=== PATIENT | female | born 1985 | race Caucasian/White ===

== ENCOUNTER 2016-05-23 17:27 | Inpatient (IN) | payer OTHER ==
[~2016-05-23] VITALS: Ht 162.6 cm; Wt 93.0 kg
[2016-05-23] MEDS: LACTATED RINGER'S 1,000 ML IV SCH (01:20)
[~2016-05-23 17:27] MED LIST: IBUP-1542 PO
[2016-05-23 17:47] VITALS: Ht 162.6 cm; Wt 93.0 kg
[2016-05-23 17:48] VITALS: BP 172/96; RESP 19
--- NOTE | 2016-05-23 17:59 | TRIAGE ---
OB Triage Datetime Report Generated by CPN: 05/23/2016 17:59 Datetime: 05/23/2016 17:39 EGA: 35.2 Datetime: 05/23/2016 17:38 Heart Rate Comments: PT CAME IN C/O BACK AND ABD PAIN SINCE YESTERDAY AFTERNOON. PLACED ON EFM X [address] ATES THAT SHE IS GDM AND HAVE HIGH BLOOD PRESSURE NOT TAKIN MEDCIATIONS AT THIS TIME Datetime: 05/23/2016 17:35 Assessment Type: Triage Maternal Assessment Level of Consciousness: Fully Conscious DTR's/Clonus: DTRs 2+; No Clonus Headache: Denies Blurred Vision: No Respiratory Effort: Unlabored; Regular Rhythm; Equal Expansion Breath Sounds, Left: Clear and Equal Breath Sounds, Right: Clear and Equal Nausea/Vomiting: Denies RUQ Epigastric Pain: Denies Lower Extremities Edema: None Degree: None Upper Extremities Edema: None Degree: None Facial Edema: None Fall Risk Assessment History of Falling: (0) No Secondary Diagnosis: (0) No Ambulatory Aid: (0) Bedrest/Nurse Assist IV Therapy: (0) No Gait: (0) Normal/Bedrest/Immobile Mental Status: (0) Oriented to Own Ability Fall Score: 0 Fall Risk Score Definition: No Risk: No action required Datetime: 05/23/2016 17:22 Stage of : OB Triage Time of Arrival: 05/23/2016 17:22 Arrived By: Wheelchair Arrived From: Home Chief Complaint: PT CAME IN C/O ABD PAIN AND BACK PAIN SINCE YESTERDAY Movement: Present Contractions: Denies/Absent Rupture of Membranes: Denies Vaginal Discharge: Denies Recent Sexual Intercouse: Denies Abdominal Trauma: Not Applicable Additional Patient Complaints: NONE Time Provider Notified: 05/23/2016 17:55 Provider Notified: CARINA Initial Plan: MONITOR AND VE
[2016-05-23] MEDS ORDERED: LACTATED RINGER'S 1,000 ML IV PRN (18:22)
[2016-05-23] MEDS ORDERED: LACTATED RINGER'S 1,000 ML IV SCH (18:22)
[2016-05-23] MEDS ORDERED: OXYTOCIN 30 UNITS/LR 500 ML IV SCH ×3 (18:30→22:30)
[2016-05-23] MEDS ORDERED: LIDOCAINE 1% (MPF) 30 ML INJ INJ PRN (18:30)
[2016-05-23] MEDS ORDERED: BUTORPHANOL 2 MG INJ IV PRN (18:30)
[2016-05-23] MEDS ORDERED: CARBOPROST 250 MCG INJ IM PRN (18:30)
[2016-05-23] MEDS ORDERED: METHYLERGONOVINE 0.2 MG INJ IM PRN (18:30)
[2016-05-23] MEDS ORDERED: AMPICILLIN 2 GM/NS (PMX) 100 ML IV ONE (18:30)
[2016-05-23] MEDS ORDERED: OXYTOCIN 30 UNITS/LR 500 ML IV PRN (18:30)
[2016-05-23] MEDS ORDERED: IBUPROFEN 600 MG TAB PO PRN (18:30)
[2016-05-23] MEDS ORDERED: MISOPROSTOL 200 MCG TAB PR PRN (18:30)
[2016-05-23 18:39] LABS: ADD SCAN DIFF NO
[2016-05-23 18:42] LABS: ABNORMAL IP MESSAGE 1; HEMOGLOBIN 11.8 g/dl (12.0-16.0)
[2016-05-23 18:54] LABS: INR 0.93; PROTIME 12.5 Sec (12.2-14.2)
[2016-05-23 18:56] LABS: HEMATOCRIT 34.8 % (37.0-47.0); MEAN CORPUSCULAR HEMOGLOBIN 28.6 pg (29.0-33.0); MEAN CORPUSCULAR HGB CONC 33.9 g/dl (32.0-37.0); MEAN CORPUSCULAR VOLUME 84.3 fl (82.0-101.0); PLATELET COUNT 142 10^3/UL (140-415); RED BLOOD COUNT 4.13 10^6/ul (4.20-5.40); RED CELL DISTRIBUTION WIDTH 13.8 % (11.5-14.5); WHITE BLOOD COUNT 6.7 10^3/ul (4.8-10.8)
[2016-05-23] MEDS ORDERED: MAGNESIUM SULFATE 4 GM/100 ML 100 ML IV ONE (19:00)
[2016-05-23 19:29] LABS: MONOCYTE # 0.2 10^3/ul (0.3-0.9); NEUTROPHIL # 3.1 10^3/ul (1.6-7.5)
[2016-05-23] MEDS ORDERED: BETAMET NA PHOS/AC(6 MG/ML) 5ML INJ IM SCH (19:30)
[2016-05-23] MEDS: MAGNESIUM SULFATE 20 GM/500 ML 500 ML IV SCH (19:35)
--- NOTE | 2016-05-23 19:35 | RADRPT ---
PROCEDURE: US OB. CLINICAL INDICATION: Labor. TECHNIQUE: Multiple sonographic images of the pelvis were obtained. The images were reviewed on a PACS workstation. COMPARISON: No prior studies are available for comparison. FINDINGS: There is a single viable intrauterine gestation. Cardiac activity is present with 156 beats per min grindstone. There is a cephalic presentation. Measurements were made in order to determine age. The results are as follows: BPD =8.69 cm HC =31.87 cm AC =36.24 cm FL =7.01 cm. Estimated gestational age of approximately 36 weeks and 6 days. The estimated date of delivery is 06/14/2016. The EFW = 3398 g . The heart, intracranial contents, spine, stomach, kidneys, bladder and cord insertion are visualized and without abnormality. The placenta is posterior, grade 2.. There is no evidence for an abruption or placenta previa. There is a normal amount of amniotic fluid with an SALLY = 24.9 cm. There are no adnexal masses.. IMPRESSION: Single live intrauterine gestation of approximately 36 weeks and 6 days. The estimated date of deli very is 06/14/2016. RPTAT: UU Physician Chepe Date Time Electronically viewed and signed by Physician Chepe on 05/23/2016 19:35 RS/
[2016-05-23 19:37] LABS: ALBUMIN 3.2 g/dl (3.3-4.9)
[2016-05-23 19:38] LABS: POTASSIUM 3.9 mmol/L (3.5-5.1)
[2016-05-23 19:39] LABS: CREATININE 0.62 mg/dl (0.44-1.00)
[2016-05-23 19:40] LABS: ALBUMIN/GLOBULIN RATIO 0.96; BILIRUBIN,INDIRECT 0.1 mg/dl (0-1.1); BILIRUBIN,TOTAL 0.1 mg/dl (0.2-1.3); TOTAL PROTEIN 6.5 g/dl (6.1-8.1)
[2016-05-23] MEDS ORDERED: hydrALAzine 20 MG INJ IV ONE ×4 (20:00→22:00)
[2016-05-23 20:24] LABS: URINE BILIRUBIN (Dip) NEGATIVE (NEGATIVE); URINE BLOOD (Dip) NEGATIVE (NEGATIVE); URINE COLOR LT. YELLOW (YELLOW); URINE GLUCOSE (Dip) >=1000 % (NEGATIVE); URINE KETONES (Dip) 40 (NEGATIVE); URINE LEUKOCYTE ESTERASE (Dip) NEGATIVE (NEGATIVE); URINE NITRITE (Dip) NEGATIVE (NEGATIVE); URINE UROBILINOGEN (Dip) 0.2 E.U./dL (0.1-1.0)
[2016-05-23 20:25] LABS: ADD UMIC NO; URINE TOTAL PROTEIN (Dip) NEGATIVE (NEGATIVE)
[2016-05-23 20:36] LABS: BARBITURATES Negative (NEGATIVE); BENZODIAZEPINES Negative (NEGATIVE)
[2016-05-23 20:37] LABS: CANNABINOIDS Negative (NEGATIVE); COCAINE Negative (NEGATIVE)
[2016-05-23 20:38] LABS: OPIATES Negative (NEGATIVE)
[2016-05-23] MEDS ORDERED: ACCU-CHEK XX SCH (21:00)
[2016-05-23] MEDS ORDERED: AMPICILLIN 1 GM/NS (PMX) 50 ML IV SCH (22:00)
[2016-05-23] MEDS ORDERED: CEFAZOLIN 2 GM/50 ML (PMX) 50 ML IV SCH (22:30)
[2016-05-23] MEDS ORDERED: morphine SULFATE/PF (10 MG/10 ML) INJ ONE (22:31)
[2016-05-23] MEDS ORDERED: FENTAnyl 50 MCG/ML VIAL ONE (22:32)
--- NOTE | 2016-05-23 22:45 | QN ---
Documentation Comment Laborist Asked by Dr. Miller to proceed with C/S in 35wk pt with severe-range BPs unresponsive to IV antihypertensives, at the recommendation of Dr. Mcdaniel. In to meet pt and review FHT. Category 1 FHT. The risks of C/S discussed with pt and partner which include but are not limited to pain, infection, damage to nearby organs, structures or injury to baby, bleeding possibly requiring transfusion of blood products, abnormal placentation in future pregnancies and possible need for deliveries for future pregnancies. Pt made aware that should injury to organs or structures be noted during the procedure, they will be repaired. However, there is a possibility that injuries may be sustained at the time of the C/S and go unrecognized. Thus additional surgeries may be necessary to repair damage during the C/S. The pt had an opportunity to have her questions answered. Written consent for Repeat C/S and transfusion of blood products were signed. RN and Anesthesia teams made aware of plan. Will proceed to OR now. Of note, pt desires tubal sterilization which per pt will be done with Dr. Miller after 6wks. Pt had not previously signed tubal papers. MAGALYS ARCE MD May 23, 2016 22:45
[2016-05-23] MEDS ORDERED: PHENYLephrine (100 MCG/ML) 5ML SYG ONE (22:54)
[2016-05-23] MEDS ORDERED: ONDANSETRON 4 MG INJ IV PRN (23:00)
[2016-05-23] MEDS ORDERED: DIPHENHYDRAMINE 50 MG INJ IV PRN (23:00)
[2016-05-23] MEDS ORDERED: ZOLPIDEM 5 MG TAB PO PRN (23:00)
[2016-05-23] MEDS ORDERED: HYDROmorphONE 1 MG/ML SYG IV PRN ×2 (23:00)
[2016-05-23] MEDS ORDERED: NALOXONE (0.4 MG/ML) INJ IV PRN (23:00)
[2016-05-23] MEDS ORDERED: CITRIC ACID/NA CITRATE 30 ML CUP PO ONE (23:00)
[2016-05-23] MEDS ORDERED: DEXAMETHASONE 4 MG/ML 1 ML INJ ONE (23:25)
--- NOTE | 2016-05-23 23:52 | OPR ---
Operative Report Planned Procedure Procedure date May 23, 2016 Procedure(s) Primary Low Transverse Section Performed by: MAGALYS ARCE MD Assisting provider: GREG GABRIEL M.D. Anesthesiologist: DESTINY BRAN Pre-procedure diagnosis 1) 35+2wks GA 2) Gestational Hypertension with Severe Range BPs unresponsive to IV antihypertensives 3) GDMA1 Anesthesia Type: spinal Procedure Description Under satisfactory anesthesia, the patient was prepped and draped in the normal sterile fashion and placed in a supine position, tilted to the left. A Pfannenstiel incision was made with a scalpel and the incision was carried down through the underlying subcutaneous tissue sharply. Bleeders were controlled with electrocautery. The fascia was incised on both sides of the midline and extended laterally in a blunt fashion with blunt dissection off of the underlying rectus muscles. The rectus muscles were divided midline. The peritoneum was then exposed and entered bluntly. Exploration of abdomen revealed a gravid uterus and good visualization of the bladder. An Kishor retractor was inserted into the intraabdominal cavity with care to avoid trapping tissue, bowel or omentum. A transverse incision was made in the lower segment of the uterus using a scalpel. The uterus was entered bluntly and the incision was bluntly extended in a cephalad caudad fashion. The head was brought to the level of the hysterotomy and delivered with fundal pressure. A tight nuchal cord was reduced. The shoulders then delivered followed by the remainder of the body. Nasal oropharyngeal suction was performed. The cord was milked, doubly clamped and cut and the baby was taken to the baby warmer for immediate assessment by RT. Cord blood was obtained. The placenta was delivered manually intact. The uterine cavity was cleaned with two wet sponges. The uterus was closed in a single layer using 0-Vicryl in continuous running- locking fashion with a second 0-Vicryl used for several [id number] sutures to ensure hemostasis. The peritoneal cavity was irrigated with warm saline and hemostasis was noted. The retractor was removed and uterus was returned to the abdomen. Sponge, needle and instrument count reported to be correct. The hysterotomy was again examined and noted to be hemostatic. Surgicel was placed across the hysterotomy. The rectus muscles and fascia were examined and noted to be intact and hemostatic. The fascia was closed with 0-Vicryl in a continuous fashion. Sponge, needle and instrument count reported to be correct. The subcutaneous layer was irrigated and small bleeders rendered hemostatic with electrocautery. Reapproximation of the subcutaneous layer was achieved with 2-0 Plain gut suture. The skin was closed with 3-0 Monocryl on a Loc needle. Steristrips and a dressing were applied. Estimated blood loss 500mL. Urine bag contained 150mL of clear urine. IVF 1L administered. Pt received IV Ancef prior to skin incision. Post-Procedure Post-procedure diagnosis Same, delivered Findings: Live female infant, Apgars 8 and 9, weight 3735g, cephalic presentation, three vessel cord. Large amount of clear amniotic fluid. Specimen removed: Yes Specimen description Placenta sent to Pathology Complications: None Pt Condition post procedure: stable Disposition: PACU Physician Certification I, the undersigned physician, hereby certify that I have discussed the procedure described in this consent form with this patient (or the patient's legal key account representative), including: * The risk and benefits of the procedure; * Any adverse reactions that may reasonably be expected to occur; * Any alternative efficacious methods of treatment which may be medically viable ; * The potential problems that may occur during recuperation; * Potential for blood transfusion and associated risks/benefits; and * Any research or economic interest I may have regarding this treatment. I further certify that the patient/legally responsible person was encouraged to ask question and that all questions were answered. MAGALYS ARCE MD May 23, 2016 23:52
[2016-05-24] VITALS (19 sets, daily range): BP systolic 122–158; BP diastolic 78–96; PULSE 81–93; RESP 18–20
[2016-05-24] MEDS ORDERED: METHYLERGONOVINE 0.2 MG INJ IM PRN
[2016-05-24] MEDS ORDERED: OXYTOCIN 30 UNITS/LR 500 ML IV PRN
[2016-05-24] MEDS ORDERED: MISOPROSTOL 200 MCG TAB PR PRN
[2016-05-24] MEDS ORDERED: LANOLIN 7 GM TUBE TOP PRN
[2016-05-24] MEDS ORDERED: ACETAMINOPHEN/CODEINE #3 TAB PO PRN
[2016-05-24] MEDS ORDERED: CARBOPROST 250 MCG INJ IM PRN
[2016-05-24] MEDS: KETOROLAC 30 MG INJ IV PRN ×2 (01:20→17:19)
--- NOTE | 2016-05-24 01:50 | PREOPHP ---
DATE OF ADMISSION: 05/23/2016 HISTORY OF PRESENT ILLNESS: This is a 31-year-old lady, 5, para 3 with 1 . Her EDC is 06/25/2016 at 35 and 2/7 weeks, admitted to rule out labor. She had care in my [place] office and the care was uneventful, except gestational diabetes on diet control. She is g ravida 5, para 3. Her first delivery was 10 years ago, second was 3 years ago, third was 1 year ago . All normal deliveries. GYNECOLOGIC HISTORY: She had menarche at the age of 14, every 28 days interval, 3 to 4 days' durati on, and moderate in amount. FAMILY HISTORY: Mother has diabetes and father has heart disease. REVIEW OF SYSTEMS: CARDIOVASCULAR: No chest pains. RESPIRATORY: No cough. GASTROINTESTINAL: No diarrhea, no vomiting. GENITOURINARY: No dysuria. PHYSICAL EXAMINATION: GENERAL: Reveals a conscious coherent lady and in acute distress. VITAL SIGNS: Her blood pressure on admission was 160/100, pulse rate 80 per minute, respirations 16 per minute. BREASTS, HEART AND LUNGS: Within normal limits. ABDOMEN: Soft, fundic height 37 cm. heart tones 140 per minute. PELVIC: Her pelvic exam revealed the cervix to be 1 cm dilated, 100% effaced, station floating in c ephalic presentation with the bag of water intact. EXTREMITIES: 1+ pedal edema. ADMITTING DIAGNOSIS: A 35 and 2/7 weeks. IMPRESSION: 1. Intrauterine , rule out TB rule out labor. 2. Gestational diabetes, diet controlled. 3. Severe -induced hypertension. . PLAN: Betamethasone and I was given betamethasone last She was given betamethasone, magnesium sulp hate and also Apresoline. She does state that she got a total of 30 mg of Apresoline, but the blood pressure remained to be running between 170 to 180/100. Dr. Mcdaniel was consulted and he advised the patient to go for . Dictated By: PIERRE BAUMAN/ILANA Conf#: [id number] DID#: [id number]
[2016-05-24] MEDS: MAGNESIUM SULFATE 20 GM/500 ML 500 ML IV SCH ×2 (06:44→17:13)
[2016-05-24] MEDS: LACTATED RINGER'S 1,000 ML IV SCH ×3 (07:52→23:52)
[2016-05-24 08:00] LABS: ADD SCAN DIFF NO
[2016-05-24 08:06] LABS: ABNORMAL IP MESSAGE 1; BASOPHILS % 0.1 % (0.0-2.0); HEMATOCRIT 33.2 % (37.0-47.0); LYMPHOCYTES # 1.9 10^3/ul (0.8-2.9); LYMPHOCYTES % 15.3 % (15.0-51.0); MEAN CORPUSCULAR HEMOGLOBIN 28.1 pg (29.0-33.0); MEAN CORPUSCULAR HGB CONC 33.1 g/dl (32.0-37.0); MEAN CORPUSCULAR VOLUME 84.9 fl (82.0-101.0); MONOCYTE # 0.2 10^3/ul (0.3-0.9); MONOCYTES % 1.8 % (0.0-11.0); NEUTROPHIL # 10.4 10^3/ul (1.6-7.5); NEUTROPHILS % 82.4 % (39.0-77.0); PLATELET COUNT 145 10^3/UL (140-415); RED BLOOD COUNT 3.91 10^6/ul (4.20-5.40); WHITE BLOOD COUNT 12.6 10^3/ul (4.8-10.8)
[2016-05-24] MEDS: SENNA/DOCUSATE NA (8.6MG/50MG) TAB PO SCH ×2 (09:00→21:36)
[2016-05-24] MEDS ORDERED: HYDROmorphONE 1 MG/ML SYG IV PRN ×2 (10:00)
[2016-05-24] MEDS ORDERED: DIPHENHYDRAMINE 50 MG INJ IV PRN (10:00)
[2016-05-24] MEDS ORDERED: KETOROLAC 30 MG INJ IV PRN (10:00)
[2016-05-24] MEDS ORDERED: ONDANSETRON 4 MG INJ IV PRN (10:00)
[2016-05-24] MEDS ORDERED: ZOLPIDEM 5 MG TAB PO PRN (10:00)
[2016-05-24] MEDS ORDERED: NALOXONE (0.4 MG/ML) INJ IV PRN (10:00)
[2016-05-25 04:15] VITALS: BP 133/86; PULSE 79
[2016-05-25] MEDS: ACETAMINOPHEN/CODEINE #3 TAB PO PRN ×5 (04:19→23:00)
[2016-05-25] MEDS: LACTATED RINGER'S 1,000 ML IV SCH (07:52)
[2016-05-25 08:00] VITALS: BP 150/92; PULSE 86; RESP 18
[2016-05-25 10:08] LABS: ADD SCAN DIFF NO
[2016-05-25 10:11] LABS: BASOPHILS % 0.2 % (0.0-2.0); EOSINOPHILS % 0.1 % (0.0-7.0); HEMATOCRIT 31.7 % (37.0-47.0); HEMOGLOBIN 10.7 g/dl (12.0-16.0); LYMPHOCYTES # 3.4 10^3/ul (0.8-2.9); LYMPHOCYTES % 30.4 % (15.0-51.0); MEAN CORPUSCULAR HEMOGLOBIN 28.8 pg (29.0-33.0); MEAN CORPUSCULAR HGB CONC 33.8 g/dl (32.0-37.0); MEAN CORPUSCULAR VOLUME 85.4 fl (82.0-101.0); MONOCYTE # 0.4 10^3/ul (0.3-0.9); MONOCYTES % 3.5 % (0.0-11.0); NEUTROPHIL # 7.2 10^3/ul (1.6-7.5); NEUTROPHILS % 65.3 % (39.0-77.0); PLATELET COUNT 157 10^3/UL (140-415); RED BLOOD COUNT 3.71 10^6/ul (4.20-5.40); RED CELL DISTRIBUTION WIDTH 14.3 % (11.5-14.5); WHITE BLOOD COUNT 11.1 10^3/ul (4.8-10.8)
[2016-05-25] MEDS: IBUPROFEN 600 MG TAB PO PRN ×2 (10:19→17:16)
[2016-05-25] MEDS: SENNA/DOCUSATE NA (8.6MG/50MG) TAB PO SCH ×2 (10:19→21:02)
[2016-05-25 16:49] VITALS: BP 153/93; PULSE 81; RESP 17
[2016-05-25 19:20] VITALS: BP_SYST 150; BP_SYST 156; BP_DIAS 85; PULSE 90; RESP 18
[2016-05-26] MEDS: IBUPROFEN 600 MG TAB PO PRN ×3 (00:34→18:44)
[2016-05-26 03:39] VITALS: BP 149/83; PULSE 71; RESP 18
[2016-05-26] MEDS: ACETAMINOPHEN/CODEINE #3 TAB PO PRN ×4 (03:39→20:54)
[2016-05-26 08:30] VITALS: BP 163/96; PULSE 82; RESP 19
[2016-05-26] MEDS: SENNA/DOCUSATE NA (8.6MG/50MG) TAB PO SCH ×2 (08:30→20:54)
[2016-05-26] MEDS: LABETALOL 200 MG TAB PO SCH ×2 (11:32→20:54)
[2016-05-26 15:34] VITALS: BP 135/79; PULSE 90; RESP 18
[2016-05-26 20:54] VITALS: BP 162/86; PULSE 86; RESP 18
[2016-05-27] VITALS (9 sets, daily range): BP systolic 148–177; BP diastolic 82–95; PULSE 63–86; RESP 18–19
[2016-05-27] MEDS: ACETAMINOPHEN/CODEINE #3 TAB PO PRN ×4 (01:43→16:38)
[2016-05-27] MEDS: IBUPROFEN 600 MG TAB PO PRN ×3 (04:10→20:26)
[2016-05-27] MEDS: LABETALOL 200 MG TAB PO SCH ×3 (08:18→20:26)
[2016-05-27] MEDS: SENNA/DOCUSATE NA (8.6MG/50MG) TAB PO SCH ×2 (09:00→20:26)
[2016-05-27] MEDS: NIFEdipine (XL) 30 MG TAB PO SCH ×2 (12:56→21:10)
--- NOTE | 2016-05-27 13:13 | CONS ---
DATE OF ADMISSION: 05/23/2016 DATE OF CONSULTATION: 05/27/2016 REQUESTING MILK HOUSE WORKER: Dr. Jaquelin Miller. REASON FOR CONSULTATION: Hypertension. HISTORY OF PRESENT ILLNESS: This is a 31-year-old G5, P3, 1 with estimated date of 017 at 35 and 2/7 weeks on 05/23/2016 with history of PIH and gestational diabetes during her last , who was admitted on 05/23/2016 to rule out labor. The patient had care in [facility] office and the care was uneventful except patient has diabetes and PIH. The patient was not placed on any blood pressure medication or diabetic medication during her course of . The patient was evaluated by Dr. Estrellita Ortiz upon admission secondary to gestational hypertensi on with severe range of blood pressure, unresponsive to IV antihypertensive medication. Patient was taken to OR for primary low transverse which patient tolerated the procedure well, and sh e gave to a live female 8 and 9, weight 3735 grams, cephalic presentation and pat ient was taken to the NICU secondary to elevated blood glucose. Unfortunately, the has been having variable blood glucose and has remained in the NICU. The medical team has been consulted toda y on 05/27/2016 secondary to MsBarrera Whitney has been having uncontrolled blood pressure today. He r blood pressure has ranged 154/87, 177/95 and 158/86. Yesterday on 05/26/2016, the patient was rosalind nikolai on labetalol 200 mg 1 tab p.o. b.i.d., which has been transitioned to 3 times a day today. At t his time, patient complains of having headache without any nausea or vomiting. She denies any chest pain, shortness of breath, abdominal pain, dysuria, hematuria, urgency, incontinence. No change in motor or sensory. No neck pain, no restricted range of motion in her upper and lower extremities o r neck. PAST MEDICAL AND SURGICAL HISTORY: 1. Gestational diabetes. 2. PIH. MEDICATIONS: 1. Tylenol #3. 2. Simethicone. 3. Senna. 4. Cytotec 5. Motrin. 6. Labetalol. ALLERGIES: NO KNOWN DRUG ALLERGY. FAMILY HISTORY: Noncontributory. SOCIAL HISTORY: Negative x3 for smoking, alcohol, illicit drugs. REVIEW OF SYSTEMS: As above per HPI, otherwise 12 review of systems was found to be negative. PHYSICAL EXAMINATION: VITAL SIGNS: Temperature 98.5, pulse 85, respiration 19, blood pressure 150/36, saturation 95% on r oom air. GENERAL APPEARANCE: The patient is lying in bed comfortably without acute distress. She is awake, alert, oriented. She was answering my questions properly. EYES AND ENT: Conjunctivae and lids are normal. Pupils are normal. Extraocular normal. Hearing g rossly normal. Lips, teeth and gums are normal. Oral mucosa is moist. NECK: Supple. Trachea is midline. No lymphadenopathy. RESPIRATORY: Effort is normal. Clear to auscultation bilaterally. CARDIOVASCULAR: Normal S1, S2. Regular rhythm and rate. No murmur, no bruits, no edema. Peripher al pulses, ____ palpable. Cap refill is normal. CHEST: Normal expansion of thorax during inspiration. ABDOMEN: Soft, nontender, not distended. Bowel sounds present. Surgical site is dry and clean. EXTREMITIES: Upper and lower extremities within normal limits. Full range of motion. No edema. NEUROLOGIC: Cranial nerves II through XII grossly intact. PSYCHIATRIC: She is awake, alert, oriented. LABORATORY WORK: Glucose 158. Magnesium 4.9. WBC on 05/25/2016 11.1, hemoglobin 10.7, hematocrit 31.7, platelets 157. ASSESSMENT AND PLAN: 1. Essential hypertension with history of -induced hypertension, has been started on labet alol at this time. Also, will start the patient on nifedipine and start a low salt diet. 2. Gestational diabetes. Place the patient on low carbohydrate diet. Follow up hemoglobin A1c in a.m. 3. Post-. 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 4. Headache. Continue Tylenol #3 and ibuprofen. 5. For deep venous thrombosis prophylaxis, the patient is ambulatory. 6. At this time, I have started the patient on nifedipine XL and the patient was to continue on lab etalol. If the patient's blood pressure improves and is below 140, she is stable to be discharged from medical standpoint with followup with [facility] as outpatient. Dictated By: ALICE FAN/ILANA Conf#: [id number] DID#: [id number]
[2016-05-28] MEDS: ACETAMINOPHEN/CODEINE #3 TAB PO PRN ×2 (01:33→08:18)
[2016-05-28 04:00] VITALS: BP 139/90; PULSE 85; RESP 18
[2016-05-28] MEDS: IBUPROFEN 600 MG TAB PO PRN ×2 (05:44→13:17)
[2016-05-28 07:11] LABS: ADD SCAN DIFF NO
[2016-05-28 07:19] LABS: BASOPHILS % 0.5 % (0.0-2.0); EOSINOPHILS # 0.4 10^3/ul (0.0-0.5); EOSINOPHILS % 4.2 % (0.0-7.0); HEMATOCRIT 33.8 % (37.0-47.0); HEMOGLOBIN 11.1 g/dl (12.0-16.0); LYMPHOCYTES # 3.2 10^3/ul (0.8-2.9); LYMPHOCYTES % 35.8 % (15.0-51.0); MEAN CORPUSCULAR HEMOGLOBIN 28.5 pg (29.0-33.0); MEAN CORPUSCULAR HGB CONC 32.8 g/dl (32.0-37.0); MEAN CORPUSCULAR VOLUME 86.7 fl (82.0-101.0); MEAN PLATELET VOLUME 13.3 fl (7.4-10.4); MONOCYTE # 0.5 10^3/ul (0.3-0.9); MONOCYTES % 5.5 % (0.0-11.0); NEUTROPHIL # 4.7 10^3/ul (1.6-7.5); NEUTROPHILS % 52.9 % (39.0-77.0); PLATELET COUNT 237 10^3/UL (140-415); WHITE BLOOD COUNT 8.8 10^3/ul (4.8-10.8)
[2016-05-28 07:42] LABS: CALCIUM 8.4 mg/dl (8.4-10.2); CREATININE 0.46 mg/dl (0.44-1.00); MAGNESIUM 1.5 mg/dl (1.7-2.5)
[2016-05-28] MEDS: NIFEdipine (XL) 30 MG TAB PO SCH (08:17)
[2016-05-28] MEDS: LABETALOL 200 MG TAB PO SCH ×2 (08:17→13:18)
[2016-05-28 08:18] VITALS: BP 134/85; PULSE 86; RESP 19
[2016-05-28] MEDS: SENNA/DOCUSATE NA (8.6MG/50MG) TAB PO SCH (08:54)
[2016-05-28 13:17] VITALS: BP 130/80; PULSE 81; RESP 18; RESP 19
[2016-05-28 16:00] VITALS: BP 117/66; PULSE 86; RESP 19
--- NOTE | 2016-05-28 16:08 | PN ---
Date/Time of Note Date/Time of Note DATE: 05/28/16 TIME: 16:04 Assessment/Plan VTE Prophylaxis VTE Prophylaxis Intervention: SCD's Lines/Catheters IV [facility] Saline Lock Assessment/Plan Chief Complaint/Hosp Course ASSESSMENT AND PLAN: 1. Essential hypertension with history of -induced hypertension, on atenolol and nifedipine, low salt diet. 2. Gestational diabetes. Place the patient on low carbohydrate diet. hemoglobin A1c 8.6 3. Post-. 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 4. Headache. Continue Tylenol #3 and ibuprofen. 5. For deep venous thrombosis prophylaxis, the patient is ambulatory. Patient is stable to be discharged home as medical standpoint She will be discharged on nifedipine XL and low-carb diet. Recommend that patient be placed on low-carb diet and follow up with her primary care physician/CUSTOMER SALES DISTRIBUTOR in 1 month in reevaluation of her blood glucose. If her blood glucose continues to be elevated patient needs to be placed on diabetic medications such as metformin Problems: Subjective 24 Hr Interval Summary Free Text/Dictation Patient denies of any chest pain or shortness of breath Complains of having headache No change in visual acuity or vision disturbance Exam/Review of Systems Vital Signs Vitals Vital Signs Date Time Temp Pulse Resp B/P Pulse Ox O2 Delivery O2 Flow Rate FiO2 05/28/16 13:17 81 18 130/80 05/28/16 13:17 Room Air 05/28/16 08:18 98.2 05/24/16 23:16 95 21 Exam General: The patient is well-developed, Not in acute distress. HEENT: Atraumatic, normocephalic. The pupils are equal and round . Neck: Supple with full range of motion. Chest: Normal expansion of the thorax during inspiration Lungs: Clear to auscultation bilaterally Heart: Normal S1-S2, Regular rhythm and rate. Abdomen: Soft , nontender, nondistended , bowel sounds are present. Extremities: Normal to inspection, no edema no cyanosis Neurologic: Normal mental status,The patient is awake, alert and oriented . Results Result Diagram: 05/28/16 0635 05/28/16 0635 Results 24 hrs Laboratory Tests Test 05/28/16 06:35 05/28/16 08:19 White Blood Count 8.8 # Red Blood Count 3.90 L Hemoglobin 11.1 L Hematocrit 33.8 L Mean Corpuscular Volume 86.7 Mean Corpuscular Hemoglobin 28.5 L Mean Corpuscular Hemoglobin Concent 32.8 Red Cell Distribution Width 15.0 H Platelet Count 237 # Mean Platelet Volume 13.3 H Neutrophils % 52.9 Lymphocytes % 35.8 Monocytes % 5.5 Eosinophils % 4.2 Basophils % 0.5 Nucleated Red Blood Cells % 0.0 Neutrophils # 4.7 Lymphocytes # 3.2 H Monocytes # 0.5 Eosinophils # 0.4 Basophils # 0.0 Nucleated Red Blood Cells # 0.0 Sodium Level 135 Potassium Level 4.0 Chloride Level 103 Carbon Dioxide Level 24 Anion Gap 12 Blood Urea Nitrogen 9 Creatinine 0.46 Glucose Level 168 Hemoglobin A1c 8.8 H Calcium Level 8.4 Magnesium Level 1.5 L Bedside Glucose 165 Medications Medications Current Medications Miscellaneous Information (* Miscellaneous Pharmacy Order) Duramorph: .2 mg Spi... GIVEN XX ; Start 05/23/16 at 23:00 Acetaminophen/ Codeine Phosphate (Tylenol No.3) 1 tab Q4H PRN PO PAIN LEVEL 4-6 ; Start 05/24/16 at 00:00 Acetaminophen/ Codeine Phosphate (Tylenol No.3) 2 tab Q4H PRN PO PAIN LEVEL 7- 10 Last administered on 05/28/16 08:18; Admin Dose 2 TAB; Start 05/24/16 at 00:00 Simethicone (Mylicon) 160 mg Q8H PRN PO DISTENSION/GAS/BLOATING Last administered on 05/25/16 23:00; Admin Dose 160 MG; Start 05/24/16 at 00:00 Senna/Docusate Sodium 1 tab 1 tab BID PO Last administered on 05/27/16 20:26; Admin Dose 1 TAB; Start 05/24/16 at 09:00 Oxytocin/Lactated Ringer's 500 ml @ 0 mls/hr ONCE PRN IV For Hemorrhage Management; Start 05/24/16 at 00:00 Methylergonovine Maleate (Methergine) 0.2 mg ONCE PRN IM VAGINAL BLEEDING; Start 05/24/16 at 00:00 Carboprost Tromethamine (Hemabate) 250 mcg ONCE PRN IM VAGINAL BLEEDING; Start 05/24/16 at 00:00 Misoprostol (Cytotec) 1,000 mcg ONCE PRN MI VAGINAL BLEEDING; Start 05/24/16 at 00:00 Ibuprofen (Motrin) 600 mg Q8H PRN PO PAIN Last administered on 05/28/16 13:17; Admin Dose 600 MG; Start 05/24/16 at 09:00 Miscellaneous Information (* Miscellaneous Pharmacy Order) Duramorph: .2 mg Spi... GIVEN XX ; Start 05/24/16 at 10:00 Labetalol HCl (Normodyne) 200 mg TID PO Last administered on 05/28/16 13:18; Admin Dose 200 MG; Start 05/27/16 at 13:00 Nifedipine (Procardia Xl) 30 mg BID PO Last administered on 05/28/16 08:17; Admin Dose 30 MG; Start 05/27/16 at 12:30 ALICE VINSON MD May 28, 2016 16:08
[2016-05-28] MEDS ORDERED: MAGNESIUM OXIDE 400 MG TAB PO ONE (17:00)
--- NOTE | 2016-05-30 20:29 | PN ---
Date/Time of Note Date/Time of Note DATE: 05/24/16 TIME: 09:56 Assessment/Plan Lines/Catheters IV Catheter Type (from Nrsg): Saline Lock Assessment/Plan Chief Complaint/Hosp Course POST OP DAY 1 Problems: Assessment/Plan ORDERED Subjective 24 Hr Interval Summary PATIENT FEELS GOOD COMPLAIN OF INCISIONAL PAIN GOOD URINE OUTPUT Exam/Review of Systems Vital Signs Vitals Vital Signs Date Time Temp Pulse Resp B/P Pulse Ox O2 Delivery O2 Flow Rate FiO2 05/28/16 16:00 98.0 86 19 117/66 Room Air Exam Free Text/Dictation AFEBRILE VITAL SIGN STABLE BREAST NOT ENGORGED ABDOMEN SOFT WOUND DRY BOWEL SOUND GOOD LOCHIA NORMAL EXTREMITIES NO CALF TENDERNESS Results Result Diagram: 05/28/16 0635 05/28/16 0635 PIERRE LIM MD May 30, 2016 20:29
--- NOTE | 2016-05-30 20:32 | PN ---
Date/Time of Note Date/Time of Note DATE: 05/25/16 TIME: 19:50 Assessment/Plan Lines/Catheters IV Catheter Type (from Nrsg): Saline Lock Assessment/Plan Chief Complaint/Hosp Course POST OP DAY 2 Problems: Assessment/Plan HOME TOMORROW Subjective 24 Hr Interval Summary GOOD BOWEL MOVEMENT LESS INCISIONAL PAIN Exam/Review of Systems Vital Signs Vitals Vital Signs Date Time Temp Pulse Resp B/P Pulse Ox O2 Delivery O2 Flow Rate FiO2 05/28/16 16:00 98.0 86 19 117/66 Room Air Exam Free Text/Dictation AFEBRILE VITAL SIGN STABLE BREAST NOT ENGORGED ABDOMEN SOFT BOWEL SOUND GOOD WOUND DRY AND CLEAN LOCHIA NORMAL EXTREMITIES NO CALF TENDERNESS Results Result Diagram: 05/28/16 0635 05/28/16 0635 PIERRE LMI MD May 30, 2016 20:32
--- NOTE | 2016-05-30 20:37 | PN ---
Date/Time of Note Date/Time of Note DATE: 05/26/16 TIME: 18:00 Assessment/Plan Lines/Catheters IV Catheter Type (from Nrsg): Saline Lock Assessment/Plan Chief Complaint/Hosp Course POST OP DAY 3 Problems: Assessment/Plan SEEN BY IM HOME TOMORROW RX GIVEN FOR LABETALOL AND PROCARDIA BY IM COUNSELED INSTRUCTED RX GIVEN TO PATIENT Subjective 24 Hr Interval Summary STILL WITH INCISIONAL PAIN B/P STILL ELEVATED Exam/Review of Systems Vital Signs Vitals Vital Signs Date Time Temp Pulse Resp B/P Pulse Ox O2 Delivery O2 Flow Rate FiO2 05/28/16 16:00 98.0 86 19 117/66 Room Air Exam Free Text/Dictation AFEBRILE B/P 140/90 AND 160/100 BREAST NOT ENGORGED ABDOMEN SOFT WOUND DRY BOWEL SOUND GOOD EXTREMITIES NO CALF TENDERNESS Results Result Diagram: 05/28/16 0635 05/28/16 0635 PIERRE LIM MD May 30, 2016 20:37
== END 2016-05-28 19:20 | disposition home or self-care (01) | DRG 766 ==
LOC: L-D 17:27 → OBT 17:27 → PIC 17:28 → L-D 17:35 → OBT 17:35 → L-D 22:27 → PP1 05-24 03:18
PROVIDERS: ADMIT Obstetrics & Gynecology; ATTEND Obstetrics & Gynecology
PROC: 10D00Z1 Extraction of Products of Conception, Low, Open Approach (ICD-10-PCS; principal; 2016-05-23 23:00)
DX: O14.94 Unspecified pre-eclampsia, complicating childbirth (principal); O60.14X0 Preterm labor third trimester with preterm delivery third trimester, not applicable or unspecified; O24.429 Gestational diabetes mellitus in childbirth, unspecified control; O13.4 Gestational [pregnancy-induced] hypertension without significant proteinuria, complicating childbirth; Z3A.35 35 weeks gestation of pregnancy; Z37.0 Single live birth
CPT/HCPCS: 76815; 80048; 80053; 80307; 81003; 82947; 82962; 83036; 83735; 84560; 85025; 85610; 85730; 86592; 86900; 86901; 87340; 88307; 94760; 99464; G0463; J0290; J0360; J0690; J0702; J1100; J1200; J1885; J2274; J2370; J2405; J3010; J3475; J7120